=== PATIENT | male | born 1995 | race Caucasian/White ===

== ENCOUNTER 2018-10-19 16:41 | Emergency (ER) | payer OTHER, SELFPAY ==
[2018-10-19 16:42] VITALS: BP 138/82; PULSE 88; RESP 19; TEMP 36.2; O2SAT 97; BMI 23.3
--- NOTE | 2018-10-19 17:14 | RAD_ITS ---
STUDY: X-RAY - PELVIS AND LEFT HIP REASON FOR EXAM: Male, 23 years old. Injury left hip pain TECHNIQUE: 3 views of the pelvis and hip. Includes One AP view pelvis. 2 views left hip. COMPARISON: None. FINDINGS: There is a non-specific bowel gas pattern. Normal visualized soft tissue structures. Normal bilateral iliac wings, sacroiliac joints and visualized sacrum. Normal bilateral superior and inferior pubic rami. Normal pubic symphysis. Normal bilateral ischial tuberosities. Normal visualized femoral head. Normal acetabulum. Normal hip joint. Normal right proximal femur right hip joint. RAD/HIP, UNI W/ Pelvis 2-3 Views IMPRESSION: Normal x-ray examination of the pelvis and hip. Electronically Signed: Afua Rodriguez MD at 17:46 EDT Tel , Service support ,
--- NOTE | 2018-10-19 17:15 | ED.VISSUMM ---
- ER Visit Summary Date of Service: 10/19/18 Chief Complaint: Left proximal thigh injury History of Present Illness: The patient is a 23 M who was at work when a piece of wood kicked out of a table saw and hit him in the left anterior hip. Complaining of pain localized to that area. He did take 4 ibuprofen prior to arrival. Physical Examination: Vital signs unremarkable. Patient no acute distress. Abdomen is soft nontender. Lower exam examination was a linear area of erythema over the anterior left hip. He has normal range of motion but does have pain with movement. He has strong distal pulses and normal sensation. Test Results: Pelvis and left hip x-rays are unremarkable. Emergency Department Course and Treatment: She had taken ibuprofen prior to arrival. He will be given prescription for naproxen he can use as needed. Treatment Plan: [] Disposition: Discharge Impression: Left hip contusion This note was generated with [employer] dictation software. It may contain incorrect words, spelling, and punctuation that were not noted in review of the chart prior to signing ED Disposition - Plan for ED Patient: Disposition: Home or Assisted Living Instructions: ED Contusion Hip Prescriptions: Naproxen [Naprosyn] 500 mg PO BID PRN PRN #20 tablet PRN Reason: Pain Referrals: [facility] [GROUP OF PHYSICIANS] - 3-5 Days
[2018-10-19 18:37] VITALS: BP 125/78; PULSE 86; RESP 13; O2SAT 99
== END 2018-10-19 18:38 | disposition home or self-care (01) ==
PROVIDERS: Emergency Provider Emergency Medicine; Family Provider Internal Medicine; PCP Internal Medicine
DX: S70.02XA Contusion of left hip, initial encounter (principal); W22.8XXA Striking against or struck by other objects, initial encounter; Y93.89 Activity, other specified; Y92.9 Unspecified place or not applicable; Y99.0 Civilian activity done for income or pay; Z72.0 Tobacco use
CPT/HCPCS: 73502; 99282

== ENCOUNTER 2021-12-16 09:28 | Emergency (ER) | payer SELFPAY ==
[2021-12-16 09:28] VITALS: BP 147/85; PULSE 84; RESP 16; TEMP 36.6; O2SAT 98; BMI 25.8
[2021-12-16 09:36] VITALS: BP 136/89; PULSE 78; RESP 19; TEMP 36.8; O2SAT 100
--- NOTE | 2021-12-16 09:36 | EKG12_ITS ---
Test Reason : cp Blood Pressure : / mmHG Vent. Rate : 071 BPM Atrial Rate : 071 BPM P-R Int : 114 ms QRS Dur : 094 ms QT Int : 374 ms P-R-T Axes : 000 146 143 degrees QTc Int : 406 ms Suspect arm lead reversal, interpretation assumes no reversal Sinus rhythm with marked sinus arrhythmia Lateral infarct , age undetermined Abnormal ECG When compared with ECG of 05-APR-2015 17:03, [id number] is no longer Present Confirmed by MAULIK MCDONALD, GENTRY ([id number]), editorial manager AREN AMARO ([id number]) on 12/19/2021 9:32:00 AM Referred By: Confirmed By:GENTRY WILLINGHAM MD
--- NOTE | 2021-12-16 09:59 | EDS_ITS ---
HPI History of Present Illness Chief Complaint: Chest Pain Informant: patient Onset/Context/Timing Onset: Weeks (1) Activity at onset: gradual and onset Timing: Continuous and Waxes and wanes Quality: Positive for Aching Location: Left Parasternal and Left Chest Current Severity: Mild Maximum Severity: Moderate Worsened By: Exertion and Movement of Arm Relieved By: Rest Associated Symptoms: Negative for Nausea, Vomiting, Diaphoresis, Dyspnea, Cough, Fever, Lightheadedness or Palpitations Narrative Narrative: Patient's been having left-sided chest discomfort for the past week or so. Nothing abrupt, very gradual, at times is worse and at other times is better, states he has a history of mitral valve prolapse and used to follow with Dr. Naik however since he several years ago, he has not been following with any patternmaker hand. He takes no medications for this nor did he when he was seeing cardiology. He denies any palpitations, but he associates this discomfort with his mitral valve prolapse in the past whenever he would get this discomfort for reasons that he is unsure of. 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 [facility] Medical History Mitral valve prolapse Home Medications naproxen 500 mg tablet 500 mg PO BID PRN #14 tabs 12/16/21 [Rx Last Taken Unknown] Allergy/AdvReac Type Severity Reaction Status Date / Time No Known Allergies Allergy Verified 12/16/21 09:30 Surgical History no surgical history Social History Smoking Status: Current some day smoker tobacco type: cigarettes ROS ROS ED Constitutional Constitutional ED: Denies chills or fever(s) Eyes Eyes: Denies change in vision or diplopia ENT ENT ED: Denies rhinorrhea or sore throat Cardiovascular Cardiovascular: Reports chest pain; Denies palpitations Respiratory/Chest Respiratory/Chest: Denies cough or dyspnea Gastrointestinal Gastrointestinal: Denies abdominal pain, diarrhea, nausea or vomiting Genitourinary Genitourinary ED: Denies dysuria or hematuria Musculoskeletal Musculoskeletal: Denies back pain or neck pain Integumentary Denies abscess or rash Neurologic Neurologic: Denies headache(s), paresthesias or weakness Psychiatric Psychiatric: Denies anxiety or suicidal thoughts EXAM Physical Exam Const Vital Signs: 12/16/21 09:28 12/16/21 09:36 12/16/21 09:37 Temperature 97.8 F 98.3 F Temperature Source Temporal Oral Pulse Rate 84 78 Respiratory Rate 16 19 H Respiratory Pattern Normal Blood Pressure 147/85 H 136/89 H Blood Pressure Mean 105 104 Pulse Ox 98 100 Oxygen Delivery Method Room Air Room Air Positive well nourished and well developed General Appearance ED: well developed and NAD HEENT Reports moist mucous membranes normocephalic and atraumatic Eyes PERRL and EOMs intact bilaterally Neck full ROM and supple Chest Wall inspection of chest normal and palpation of chest normal Chest Narrative: No tenderness, crepitance, flail, subcutaneous emphysema. Resp normal respiratory effort and clear to auscultation bilaterally Cardio regular rate, regular rhythm and no murmurs Rate: Negative for tachycardic GI non-tender and non-distended Auscultation: normoactive bowel sounds Palpation: soft Back/Spine no CVA tenderness General Back: other FROM Extremity normal to inspection General Extremety ED: Negative for edema, pulses abnormal or tenderness General Extremity: Negative for edema or pulses abnormal Neuro oriented x3, CN's II-XII intact bilaterally and no sensory deficits noted Sensorium / Orientation: awake and alert Motor Exam: strength 5/5 throughout Skin no rashes or lesions noted and no wounds Heart Score History: Slightly/Non-Suspicious ECG: Normal Age: </= 45 years Risk Factors: 1 or 2 Risk Factors Troponin: </= Normal Limit Score: 1 MDM MDM MDM Narrative Medical decision making narrative: PERC score is 0, no need for further testing for pulmonary embolus at this time. His symptoms are nonpleuritic. His work-up is negative including chest x-ray, EKG, labs including troponin, which does not need to be repeated emergently. He is improved after Toradol, and prior to this I had him adduct his hands outstretched in front of him against resistance, which does reproduce his pain. I think all of this is consistent with musculoskeletal etiology. We will give him a work note for today, prescribe him anti-inflammatories, follow-up if persistent and he is comfortable with that plan. Lab Data Attestation: I reviewed the patient's lab results. Labs: Laboratory Results - last 24 hr 12/16/21 12/16/21 10:12 10:12 WBC 5.0 RBC 4.86 Hgb 15.3 Hct 45.4 MCV 93.4 MCH 31.5 MCHC 33.7 RDW Std Deviation 39.8 RDW Coeff of Owen 11.7 Plt Count 244 MPV 10.4 Immature Gran % (Auto) 0.200 Neut % (Auto) 64.3 Lymph % (Auto) 26.4 Nance % (Auto) 8.3 Eos % (Auto) 0.4 Baso % (Auto) 0.4 Absolute Neuts (auto) 3.2 Absolute Lymphs (auto) 1.33 Nucleated RBC % 0 Sodium 141 Potassium 3.8 Chloride 106 Carbon Dioxide 30.0 Anion Gap 5 BUN 17 Creatinine 1.11 Estim Creat Clear Calc 105.04 Est GFR (MDRD) Af Amer 103 Est GFR (MDRD) Non-Af 85 BUN/Creatinine Ratio 15.3 Glucose 98 Calcium 9.5 Troponin I High Sens < 3 L Radiography Chest X-Ray - ED: 1 View, Read by ED Physician, Normal, Heart, Lungs, Mediastinum and Bony Structures Diagnostic Testing: Clinical Impression(s) from Imaging Studies Chest X-Ray 12/16/21 10:09 IMPRESSION: Normal x-ray examination of the chest. Electronically Signed: Lamont Lucas MD at 10:43 EDT , Rhythm Strip Rhythm Strip: Sinus Rhythm Rate: 80 Ectopy: None EKG Initial EKG: Attestation: I personally reviewed and interpreted this EKG as follows: Interpretation: Sinus Rhythm and No Acute Injury Pattern Comments: Normal EKG Discharge Plan Triage Chief Complaint: Chest Pain ED Provider: Edwardo Fabian Dx/Rx/DC Orders Clinical Impression: Chest wall muscle strain Instructions: ED Chest Wall Pain, Costochondritis Prescriptions: New naproxen 500 MG tablet 500 mg PO BID PRN Qty: 14 0RF Primary Care Provider: Care Physician,No Primary Referrals: Kenny Green Jr., MD [NON-STAFF] - 1 Week if not improving Disposition Disposition: Home, Self Care
--- NOTE | 2021-12-16 09:59 | EKG12_ITS ---
Test Reason : cp Blood Pressure : / mmHG Vent. Rate : 071 BPM Atrial Rate : 071 BPM P-R Int : 116 ms QRS Dur : 100 ms QT Int : 380 ms P-R-T Axes : 069 076 070 degrees QTc Int : 412 ms Normal sinus rhythm Normal ECG Confirmed by MAULIK MCDONALD, GENTRY ([id number]), editor sound AREN AMARO ([id number]) on 12/17/2021 8:39:54 AM Referred By: Confirmed By:GENTRY WILLINGHAM MD
[2021-12-16] MEDS: Ketorolac 30 MG/ML Syringe IV (10:09)
--- NOTE | 2021-12-16 10:09 | RAD_ITS ---
STUDY: X-RAY CHEST REASON FOR EXAM: Male, 26 years old. Chest pain TECHNIQUE: Single AP portable view of the chest. COMPARISON: Comparison is made with prior study dated 04/05/2015. FINDINGS: EKG electrodes are seen. The lungs are clear and expanded. There is no demonstrated pleural abnormality. Normal size heart. Normal mediastinum and trace. Normal visualized pulmonary arteries. Normal visualized aortic arch and descending thoracic aorta. Normal visualized thoracic spine. Normal visualized ribs, clavicles, and shoulders. There is no demonstrated abnormality of the visualized soft tissue structures of the upper abdomen. RAD/Chest 1 View (Portable) IMPRESSION: Normal x-ray examination of the chest. Electronically Signed: Lamont Lucas MD at 10:43 EDT ,
[2021-12-16 10:22] LABS: Absolute Lymphocyte Count 1.33 X10^3/uL (0.83-4.51); Absolute Neutrophil Count 3.2 X10^3/uL (2.0-7.7); Basophil# 0.02 X10^3/uL; Basophil% 0.4 % (0-1); Eosinophil# 0.02 X10^3/uL; Eosinophils% 0.4 % (0-5); Hematocrit 45.4 % (40-54); Hemoglobin 15.3 g/dL (13.0-16.5); Lymphocyte # 1.33 X10^3/ul (0.83-4.51); Lymphocyte % 26.4 % (19-41); Mean Corp Hgb Conc 33.7 g/dL (32-36); Mean Corpuscular Hgb 31.5 pg (27.0-32.0); Mean Corpuscular Volume 93.4 fL (80-94); Mean Platelet Vol. 10.4 fl (6.2-12.0); Monocyte# 0.42 X10^3/uL; Monocyte% 8.3 % (0-10); NRBC Flagged by Analyzer 0 % (0-5); Neutrophil # 3.24 X10^3/uL (2.7-7.7); Neutrophil % 64.3 % (47-70); Platelet Count 244 K/mm3 (150-450); RBC Distribution Width CV 11.7 % (11.6-14.6); RBC Distribution Width SD 39.8 fl (35.1-43.9); Red Blood Count 4.86 M/mm3 (4.6-6.2)
[2021-12-16 10:34] LABS: Anion Gap 5 (5-15); BUN 17 mg/dL (7-18); BUN/Creat Ratio 15.3 RATIO (10-20); Calcium,Total 9.5 mg/dL (8.5-10.1); Chloride 106 mmol/L (98-107); Creatinine, Serum 1.11 mg/dL (0.70-1.30); EST Glomerular Filtration Rate 85 mL/min (>60); Est Glom Filt Rate - Afr Amer 103 mL/min (>60); Estimated Creatinine Clearance 105.04 ml/min; Glucose 98 mg/dL (74-106); Potassium 3.8 mmol/L (3.5-5.1); Sodium Level 141 mmol/L (136-145); Troponin-I HS < 3 pg/mL (3.0-78.0)
[2021-12-16 12:09] VITALS: BP 116/82; PULSE 65; RESP 21; O2SAT 98
== END 2021-12-16 12:12 | disposition home or self-care (01) ==
PROVIDERS: Emergency Provider Emergency Medicine; Visit Provider Emergency Medicine
DX: S29.011A Strain of muscle and tendon of front wall of thorax, initial encounter (principal); F17.210 Nicotine dependence, cigarettes, uncomplicated; X58.XXXA Exposure to other specified factors, initial encounter
CPT/HCPCS: 71045; 80048; 84484; 85025; 93005; 96374; 99283; A4216